=== PATIENT | female | born 1965 | race Caucasian/White ===

== ENCOUNTER → 2023-11-15 08:33 | Outpatient (REF) | payer OTHER, SELFPAY | LOC: HWWDC 08:33 | PROVIDERS: ATTENDING PHYSICIAN Obstetrics & Gynecology; FAMILY PHYSICIAN Family Medicine | DX: Z12.31 Encounter for screening mammogram for malignant neoplasm of breast (principal) | CPT/HCPCS: 77063; 77067 ==

== ENCOUNTER → 2024-02-05 09:03 | Outpatient (REF) | payer OTHER, SELFPAY | LOC: WDC 09:03 | PROVIDERS: ATTENDING PHYSICIAN Obstetrics & Gynecology | DX: R92.2 Inconclusive mammogram (principal) | CPT/HCPCS: 76641 ==

== ENCOUNTER 2024-06-18 05:23 | Day surgery (SDC) | payer BC, SELFPAY ==
[2024-06-17 23:51] VITALS: BP 195/104
[2024-06-18] VITALS (22 sets, daily range): BP systolic 102–186; BP diastolic 64–104; BMI 31.0; BMI 30.1
[2024-06-18] MEDS: ZOFRAN ODT (ORALLY DISINTEGRATING) 4 MG PO (00:14)
[2024-06-18 02:05] LABS: % Basophils 0.4 % (0-2); % Eosinophils 0.8 % (0-6); % Immature Granulocytes 0.4 % (0-0.5); % Lymphocytes 12.2 % (20.5-51.1); % Monocytes 5.4 % (1.7-9.3); % Neutrophils 80.8 % (42.2-75.2); Absolute Basophils 0.1 10^3/uL (0-0.2); Absolute Eosinophils 0.1 10^3/uL (0-0.7); Absolute Immature Granulocytes 0.1 10^3/uL (0-0.05); Absolute Lymphocytes 1.5 10^3/uL (1.2-3.4); Absolute Monocytes 0.6 10^3/uL (0.1-0.6); Absolute Neutrophils 9.6 10^3/uL (1.4-6.5); Hematocrit 46.8 % (37.0-47.0); Hemoglobin 16.4 g/dL (12.0-16.0); Mean Corpuscular Hgb 30.5 pg (27.0-31.0); Mean Corpuscular Volume 87.2 fL (81.0-99.0); Mean Platelet Volume 9.2 fL (7.4-10.4); Nucleated Red Blood Cells % 0 %; Platelet Count 237 10^3/uL (130-400); Red Blood Cell Count 5.37 10^6/uL (4.20-5.40); Red Cell Dist. Width 11.7 % (11.5-14.5); White Blood Cell Count 11.9 10^3/uL (4.8-10.8)
[2024-06-18 02:41] LABS: ALT (SGPT) 150 U/L (0-35); AST (SGOT) 194 U/L (14-36); Albumin 5.3 g/dl (3.5-5.0); Alkaline Phosphatase 72 U/L (38-126); Blood Urea Nitrogen 17 mg/dl (7-17); Calcium 10.2 mg/dl (8.4-10.2); Carbon Dioxide 23 mmol/L (22-30); Chloride 101 mmol/L (98-107); Estimated Creatinine Clearance 101 ml/min; Glucose 200 mg/dl (70-99); Lipase 397 U/L (23-300); Potassium 4.3 mmol/L (3.5-5.1); Sodium 136 mmol/L (135-145); Total Bilirubin 0.8 mg/dl (0.2-1.3); Total Protein 8.3 g/dl (6.3-8.2); eGFR > 60.00
--- NOTE | 2024-06-18 02:46 | ED.GENMED ---
History of Present Illness
General
Chief Complaint: Abdominal Symptoms
Source: patient and spouse
Exam Limitations: none
Time Seen by Provider: 06/18/24 02:26
Nursing documentation reviewed up to this point in time: agreed with
History of Present Illness
History of Present Illness:
59-year-old female presents to the emergency department complaining of abdominal pain, burning and nausea in the epigastric area. This began 5 hours ago. She has a history of similar symptoms in the past. [place] were on a [place] road trip
and did not get evaluated.
Past History
Past History
ED Past Medical History: Cancer (Breast cancer)
ED Past Surgical History: and Gynecological (Oophorectomy for ovarian torsion)
Social History
Tobacco: Non-smoker
Alcohol: None
Drug: None
Personal:
Living: with family
Review of Systems
Review of Systems
Allergies reviewed?: Yes
All Other Systems: Not applicable
Constitutional: Reports no symptoms
EENT: Reports no symptoms
Respiratory: Reports no symptoms
Cardiac: Reports no symptoms
ABD/GI: Reports abdominal pain and vomiting
: Reports no symptoms
Musculoskeletal: Reports no symptoms
Skin: Reports no symptoms
Neurological: Reports no symptoms
Endocrine: Reports no symptoms
Hematologic/Lymphatic: Reports no symptoms
Psychiatric: Reports no symptoms
Phy Exam
Physical Exam
Physical Exam:
Physical Exam
General: no apparent distress, not acutely ill
Neck: supple. no meningeal signs. normal posterior pharynx
Heart: s1/s2 regular rate and rhythm, no murmur. equal radial
pulses.
HEENT: Pupils equal round reactive to light, EOMI
Lungs: no acute respiratory distress. clear bilaterally
Abdomen: normal bowel sounds. Mild epigastric tenderness. No CVAT
Neuro: alert and oriented. no focal neurological deficits cranial nerves II through XII intact
Skin: no rash, midline blue tattoo marker for radiation on epigastric region
Psychiatric: well kept. interactive and cooperative
Extremities: no edema. no calf tenderness. negative homans. good distal pulses
Course
Orders/Labs/Results
Orders:
Orders
06/18/24 00:14
Ondansetron Orally Disint [Zofran Odt (Orally Disintegrating)] 4 mg PO NOW STA
06/18/24 01:55
Complete Blood Count/With Diff Urgent
Comprehensive Metabolic Panel Urgent
Lipase Urgent
06/18/24 02:45
CT Abd/pelvis W Iv Cont Urgent
Comment:
Reason For Exam: epigastric/right sided abdominal pain
06/18/24 03:02
Urinalysis Reflex To Culture Urgent
Date Specimen was Collected: 06/18/24
Time Specimen was Collected: 03:00
06/18/24 04:10
Piperacillin/Tazo 4.5 Gram [Zosyn] 4.5 gram in 100 ml IV NOW
06/18/24 04:32
HYDROmorphone [Dilaudid] 0.5 mg IV NOW STA
Ondansetron Injectable [Zofran] 4 mg IV NOW STA
06/18/24 05:05
Admit/Transfer Patient As Directed
Co-Sign Provider:
Level of Care: Observation services
Assign to:: Medical/Surgical
Physician / Group: Dr. Singh Surgical
Diagnosis: acute cholecystitis
Code Status As Directed
Resuscitation Status: Full Code
PRN Pain Medication Management As Directed
May give lesser potent ordered pain med per pt: Yes
preference::
Protocol:: Medication orders for pain may be administered in a
manner that supports deferring to patient preference
when the pt is:
- Requesting an ordered lesser potent pain medication.
Least to most potent pain medications are defined
as: acetaminophen < NSAID < tramadol < opioids
(morphine, oxycodone, hydromorphone).
- Requesting a lesser dose of the same medication IF
ORDERED.
- Requesting a less intrusive route of administration
if both routes are prescribed by the provider (PO <
IV).
06/18/24 Breakfast
NPO
Allow oral meds: Yes
Allow clear liquids: No
06/18/24 06:06
Acetaminophen [Tylenol] 650 mg PO Q4HPRN PRN
Bisacodyl [Dulcolax] 10 mg RECTAL [id number] PRN
Docusate W/Senna [Senokot-S] 1 tablet PO BIDPRN PRN
HYDROmorphone [Dilaudid] 0.25 mg IV Q4HPRN PRN
HYDROmorphone [Dilaudid] 0.5 mg IV Q4HPRN PRN
Lactated Ringers [Lr] 1,000 ml IV 80 mls/hr
Ondansetron Injectable [Zofran] 4 mg IV Q6HPRN PRN
Polyethylene Glycol Powder [Miralax] 17 grams PO DAILYPRN PRN
06/18/24 06:06
Comprehensive Metabolic Panel Routine
Activity As Directed
Activity Level: Out of Bed-Early Mobility
Pneumatic Compression Sleeves As Directed
Type: Knee high
Vital Signs As Directed
Frequency: Per unit guidelines
DX Deep Vein Thrombosis Video Routine
06/18/24 10:00
Piperacillin/Tazo 3.375 Gram [Zosyn] 3.375 gram in 50 ml IV Q6H
06/19/24 06:00
Lipase IN AM
Abnormal Lab Results
06/18/24 06/18/24
01:55 03:02
WBC 11.9 H 10^3/uL
(4.8-10.8)
Hgb 16.4 H g/dL
(12.0-16.0)
Abs Immat Gran (auto) 0.1 H 10^3/uL
(0-0.05)
Absolute Neuts (auto) 9.6 H 10^3/uL
(1.4-6.5)
Neutrophils % 80.8 H %
(42.2-75.2)
Lymphocytes % 12.2 L %
(20.5-51.1)
Glucose 200 H mg/dl
(70-99)
AST 194 H U/L
(14-36)
ALT 150 H U/L
(0-35)
Total Protein 8.3 H g/dl
(6.3-8.2)
Albumin 5.3 H g/dl
(3.5-5.0)
Lipase 397 H U/L
(23-300)
Urine Glucose 2+ A
(Negative)
06/18/24 01:55
06/18/24 01:55
Vital Signs
Initial and Last Documented VS:
Initial Vital Signs
Temp Pulse Resp BP Pulse Ox
98.2 F 72 18 195/104 99
06/17/24 23:51 06/17/24 23:51 06/17/24 23:51 06/17/24 23:51 06/17/24 23:51
Last Documented Vital Signs
Temp Pulse Resp BP Pulse Ox
98.2 F 71 18 186/98 97
06/17/24 23:51 06/18/24 01:57 06/18/24 01:57 06/18/24 03:00 06/18/24 03:00
MDM/Problems Addressed
Differential Diagnosis Includes:
Pancreatitis, cholecystitis
MDM/Problems Addressed:
51-year-old female with acute cholecystitis. Admit to Dr. Francisco emery, n.p.o., Zosyn given.
Chronic conditions affecting care: Cancer
*Radiology
Radiology exam reviewed: radiology read reviewed (CT abdomen pelvis shows acute cholecystitis)
*Pulse Oximetry
Patient hypoxic: no
*Critical Care Note
Total Time (30-74mins, 75-104mins- exclusive of procedures): Not Applicable
Patient Management
Social determinants of health affecting care: Living situation and Strong social support
Discussion with other providers: Cloth Layer (General surgery)
Escalation/DeEscalation of care consider admission/obs:
Admission indicated
ED Attending Note
-
Portions of this chart may have been created with voice recognition software.� Occasional wrong word or��sound alike� substitutions may have occurred due to the inherent limitations of voice recognition software.
Discharge Plan
Departure
Patient Disposition: Admit
Date of Disposition: 06/18/24
Time of Disposition: 04:11
Admit to: Med/Surg
Presentation/result/management discussed w/ accepting MD/DO: General surgery
Patient with high blood pressure during this ER visit?: Yes
Condition: Good
Discharge Problem:
Acute cholecystitis
Interventions
Interventions:
*Risk Screen - Suicide Last Done: 06/18/24 01:44
*General Assessment Last Done: 06/17/24 23:51
*Neglect/Abuse Screening Last Done: 06/17/24 23:51
ED- Fall Risk Assessment Last Done: 06/18/24 01:44
*ED COVID-19 Vaccine History Last Done: 06/17/24 23:51
*Nursing Disposition Last Done: 06/18/24 06:08
BB-Fgcyug-Dwbncgwckg Assessment Last Done: 06/18/24 01:57
Discharge Date and Time
Discharge Date/Time: 06/18/24 06:08
[2024-06-18 03:38] LABS: Urine Albumin Trace (Neg - Trace); Urine Bilirubin Negative (Negative); Urine Character Slightly Cloudy (Clear); Urine Color Yellow; Urine Glucose 2+ (Negative); Urine Ketone Negative (Negative); Urine Leukocyte Negative (Negative); Urine Nitrite Negative (Negative); Urine Occult Blood Negative (Negative); Urine Urobilinogen Negative (Neg - 1+)
[2024-06-18] MEDS: ZOFRAN 4 MG IV ×2 (04:42→16:53)
[2024-06-18] MEDS: DILAUDID 0.5 MG IV ×2 (04:42→09:21)
[2024-06-18] MEDS: ZOSYN 100 IV (04:47)
--- NOTE | 2024-06-18 05:04 | HPS.HSE ---
Addendum entered and electronically signed by Marcel Mantilla MD 06/18/24 09:11:
Patient seen and examined independently of admitting nurse practitioner. Agree with documented history and physical with additions noted here.
HPI: 59-year-old female who was in her usual baseline state of health until yesterday early evening when she developed the acute onset of epigastric and bandlike upper abdominal pain with abdominal bloating and distention. She recalls 2 similar
prior episodes over the past few months. The first was prior to and the other earlier in May. Both of these events were postprandial in nature lasting overnight with symptoms improving the following day. This episode was more
severe and acute in onset after having cheese cake yesterday. She has had some nausea and anorexia but no vomiting. No change in bowels. No additional associated symptoms.
Pain remains persistent this a.m. and is now returning.
PMH: Hypertension
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
AFVSS
NAD AAOx3; uncomfortable appearing; her is at bedside
ABD: Soft, mild distention, tenderness palpation localizing to the epigastrium and right upper quadrant with voluntary guarding on deep palpation.
WBC 11.9, mild elevation AST and ALT. Normal bilirubin and alkaline phosphatase. Lipase 397. A.m. lipase pending.
CT imaging personally reviewed demonstrates distended gallbladder with inflammatory changes and subtle appearance of stones.
Assessment/plan: 59-year-old female with probable acute calculus cholecystitis, possible mild gallstone pancreatitis -await a.m. lipase from today
Reviewed with patient and her at bedside indications for cholecystectomy secondary to persistent pain and tenderness on examination. Laparoscopic cholecystectomy with intraoperative cholangiograms reviewed in detail the patient including
the operative technique utilizing diagrams and drawings, potential operative findings and their management (if choledocholithiasis identified would need post op ERCP). We discussed potential benefits and risks of the procedure in detail including
but not limited to bleeding, infectious and wound related complications, iatrogenic injury to surrounding viscera, bile leak, bile duct injury, postcholecystectomy fatty food intolerance/bowel changes. We discussed the typical postoperative
recovery pending operative findings. Any of the patient's concerns or questions were fully addressed and written informed consent was obtained.
Patient has been added onto the OR schedule for today
N.p.o.
IV fluids
A.m. lipase pending
Zosyn for empiric coverage of cholecystitis
Original Note:
Family Physician
-
Family Physician: NOT KNOW UNKNOWN - PT DOES
Chief Complaint
-
Abdominal pain
History of Present Illness
a 59 years old female with PMH of HTN, breast cancer, present to ER with a complain of abdominal pain. Symptoms started around 9pm last night after eating dinner. Pain described as burning and stabbing to the epigastric area and B/L upper sides of
the abdomen. Rated 7/10 of pain scale associated with nausea. She had similar symptoms twice in the past. Denies vomiting, constipation, diarrhea, SOB, chest pain, fever, chills, or any other symptoms.
Medical History
Past Medical History
Past Medical History: Reports Cancer (breast cancer ) and HTN
Past Surgical History: Reports and Gynocological (oophorectomy for ovarian torsion )
Social History
Tobacco: Non-smoker
Alcohol: Other (3-4 drinks a week last drink 06/16 )
Drug: Marijuana (medical marijuana for sleeping )
Personal:
Living: With Family
Employment: Other
Family History
Family History: Not pertinent
Allergies / Home Medications
Allergies reflects when Allergies were last updated in [facility].
Home Medications with original date entered in [facility]
Allergy/Medication List:
Patient Allergies
Allergy/AdvReac Type Severity Reaction Status Date / Time
azithromycin [From Zithromax] Allergy Hives Verified 07/28/16 18:35
morphine Allergy Itching Verified 06/17/24 23:52
cats Allergy itching Uncoded 07/28/16 18:35
and asthma
pollen and mold Allergy sinus Uncoded 07/28/16 18:35
congestion
and
sneezing
Home Medications Table - record
�Medication �Instructions �Recorded �Confirmed
losartan 50 mg tablet 50 mg PO DAILY 07/28/16 06/18/24
Review of Systems
-
History Source: Patient
A 12 point ROS was completed and negative except as noted: Yes
EENT: Reports No Symptoms
Respiratory: Reports No Symptoms
Cardiac: Reports No Symptoms
Abdomen/GI: Reports Abdominal Pain (Epigastric area and B/L upper side of the abdomen) and Nausea
: Reports No Symptoms
Musculoskeletal: Reports No Symptoms
Skin: Reports No Symptoms
Neurological: Reports No Symptoms
Endocrine: Reports No Symptoms
Hematologic/Lymphatic: Reports No Symptoms
Physical Exam
Vital Signs
Vital Signs
Temp Pulse Resp BP Pulse Ox
98.2 F 71 18 186/98 97
06/17/24 23:51 06/18/24 01:57 06/18/24 01:57 06/18/24 03:00 06/18/24 03:00
Physical Exam
General: Pain
Respiratory: Clear
Cardiac: Regular Rhythm
GI: Soft and Tender (Epigastric area )
Musculoskeletal: No Edema
Skin: Warm
Neuro: Awake and AO x 3
Psych: Calm
Laboratory Results
-
06/18/24 01:55
06/18/24 01:55
Laboratory Results
Total Bilirubin 0.8 mg/dl (0.2-1.3) 06/18/24 01:55
AST 194 U/L (14-36) H 06/18/24 01:55
ALT 150 U/L (0-35) H 06/18/24 01:55
Alkaline Phosphatase 72 U/L (38-126) 06/18/24 01:55
Lipase 397 U/L (23-300) H 06/18/24 01:55
Data Reviewed
-
CT Scan: Discussed with Patient
Lab Data: Discussed with Patient
Impression/Plan
-
Abd/ PLVS CT shows gallbladder is distended and inflamed almost certainly reflecting acute cholecystitis, surgical consultation is recommend. Common bile duct likely normal for age at 7mm.
Hepatic steatosis. No pancreatitis. No obstructing renal stone. No bowel obstruction or diverticulitis.
WBC 11.9
IMPRESSION:
acute cholecystitis
PLAN:
Admit/observation/ med- surg Dr. Singh/ surgical services.
NPO
IVF
Will repeat CMP and lipase in am
Abx Zosyn
Antiemetics as needed
analgesics as needed
HTN
Currently on losartan
DVT prophylaxis SCDs
Code status Full code
[2024-06-18] MEDS: LR 1000 IV (06:21)
[2024-06-18 08:46] LABS: ALT (SGPT) 213 U/L (0-35); AST (SGOT) 277 U/L (14-36); Albumin 4.6 g/dl (3.5-5.0); Alkaline Phosphatase 59 U/L (38-126); Blood Urea Nitrogen 13 mg/dl (7-17); Calcium 9.9 mg/dl (8.4-10.2); Carbon Dioxide 25 mmol/L (22-30); Chloride 99 mmol/L (98-107); Estimated Creatinine Clearance 116 ml/min; Glucose 195 mg/dl (70-99); Potassium 4.5 mmol/L (3.5-5.1); Sodium 136 mmol/L (135-145); Total Bilirubin 0.6 mg/dl (0.2-1.3); Total Protein 7.3 g/dl (6.3-8.2); eGFR > 60.00
[2024-06-18] MEDS: ZOSYN 50 IV ×2 (09:21→21:36)
[2024-06-18 10:28] LABS: Lipase 237 U/L (23-300)
--- NOTE | 2024-06-18 14:34 | W.SUR.PREOP ---
Pre-Operative Surgical Note
-
I have examined this patient prior to the performance of the scheduled procedure.
The patient's condition is unchanged from the time of the current History and
Physical and the patient is able to undergo the scheduled procedure.
--- NOTE | 2024-06-18 16:29 | W.IMMPOSTOP ---
Addendum entered and electronically signed by Marcel Mantilla MD 06/18/24 16:42:
#[id number]
Original Note:
Surgical Immed Post Op Note
-
Primary Surgeon: Marcel Mantilla MD
Assisting Surgeon: Chaitanya Vanegas MD, PGY 1
Pre-op Diagnosis: Acute calculus cholecystitis
Post-op Diagnosis: Acute calculus cholecystitis
Procedure Performed: Lap cholecystectomy with IOC
Anesthesia Type: GETA +0.25% Marcaine
Specimen / Cultures: Gallbladder/none
Estimated Blood Loss: 8 mL
Complications: None immediate
Operative Findings: Distended gallbladder with edema but no significant wall thickening. Numerous small gallstones. Intraoperative cholangiogram confirmed biliary anatomy. No definitive evidence of choledocholithiasis. Gallbladder removed intact
and extracted at epigastric 12 mm trocar site.
Advance diet as tolerated to low-fat postoperatively
Anticipate discharge home tomorrow
Updated patient's postoperatively in the waiting area.
[2024-06-18 17:04] LABS: Glucose - Point of Care 149 mg/dl (70-99)
[2024-06-18] MEDS: TORADOL 10 MG IV (17:09)
[2024-06-18] MEDS: ZOSYN IV (17:14)
[2024-06-18] MEDS: DEMEROL 12.5 MG IV ×2 (17:17→17:29)
--- NOTE | 2024-06-18 17:31 | SUR.PHASEI ---
patient post op - when awake c/o slight nausea and pain - burning. medicated with zofran and toradol. nausea subsided and then shivers. Demerol 12.5 given IV x2 for shivers and pain, dozing now,
[2024-06-18] MEDS: COMPAZINE 5 MG IV (17:54)
--- NOTE | 2024-06-18 18:42 | PTCARENOTE ---
Received patient at 1840 from PACU. Patient drowsy but arousable to verbal stimuli. Patient has no c/o pain, abdomen with 5 lap sites CDI, ice to abdomen, 2L NC 97%. Call purdy in reach spouse at bd side.
--- NOTE | 2024-06-18 20:26 | SUR.PHASEI ---
pacu addendum -patient in pacu - received sedate and then awakened confused. vss,, reorients easily, but agitated slightly - feels Odd, slight nausea, some pain. Medicated with zofran for nausea, then toradol and demerol. at 1745 - just feels
weird all over and maybe nausea with burning - medicated with compazine and sleeps . O2 nasal cannula, with all of pain meds and antiemetics.
[2024-06-19] MEDS: LR 1000 IV (01:48)
[2024-06-19 03:43] VITALS: BP 130/71
[2024-06-19] MEDS: ZOSYN 50 IV ×2 (04:07→10:41)
[2024-06-19 08:00] VITALS: BP 120/71
--- NOTE | 2024-06-19 08:52 | W.PN.GS2 ---
Today's Communication / Plan
-
dispo planning
Assessment / Plan
-
59 yo female who presented with acute calculous cholecystitis
AFVSS
Following expected post op course
--Low fat diet as tolerated
--IS when awake, wean off O2
--Analgesics/antiemetics as needed
--OOB/ambulate
--D/C later today once off oxygen and tolerating diet
Subjective Data
-
Date of Service: June 19, 2024
Patient seen and examined at bedside with Dr. Saleh. Jose n/v. Has not yet eaten since surgery. Pain well managed and minimal.
Objective Data
-
Intake and Output
06/18/24 06/19/24 06/20/24
06:59 06:59 06:59
Intake Total 320 / 320
Balance 320 / 320
Intake:
Oral fluids 20 / 20
IV fluids (Total) 200 / 200
normosol 200 / 200
IV piggybacks 100 / 100
Other:
Number of approximated MODERATE 1
amounts of urine
Vital Signs
Temp Pulse Resp BP Pulse Ox
98.2 F 71 18 120/71 96
06/19/24 08:00 06/19/24 08:00 06/19/24 08:00 06/19/24 08:00 06/19/24 08:00
Lab Results
06/18/24 01:55
06/18/24 07:49
Calcium 9.9 mg/dl (8.4-10.2) 06/18/24 07:49
Total Bilirubin 0.6 mg/dl (0.2-1.3) 06/18/24 07:49
AST 277 U/L (14-36) H 06/18/24 07:49
ALT 213 U/L (0-35) H 06/18/24 07:49
Alkaline Phosphatase 59 U/L (38-126) 06/18/24 07:49
Total Protein 7.3 g/dl (6.3-8.2) 06/18/24 07:49
Albumin 4.6 g/dl (3.5-5.0) 06/18/24 07:49
Physical Exam
-
NAD
ABD soft, nd, mild incisional tenderness
Incisions well approximated without erythema, intact glue
--- NOTE | 2024-06-19 09:55 | W.DS.TRANS ---
DC Summary - Pharmacy Scheduler
-
Discharge Instructions:
Discharge Diagnosis/Procedures Acute calculus cholecystitis. Laparoscopic
cholecystectomy
Diet As tolerated,Low Fat
Additional Diets Smaller meals initially after surgery is
abdominal bloating and distention are common for
the first few days
Activity No strenuous activity
Additional Activity No lifting over 20 pounds for 3 to 4 weeks
postoperatively
Bathing Restrictions OK to Shower
Wound Care Glue at surgical sites typically peels off in 2
to 3 weeks
Instructions:
Stand-Alone Forms:
Changes to Home Medications: No
Discharge Medications:
DC Medications w/original date entered in [employer]
losartan 50 mg tablet 50 mg PO DAILY 07/28/16
acetaminophen 325 mg tablet 650 mg (2 x 325 mg) PO Q4HPRN PRN mild pain #1 tab 06/19/24
ibuprofen 200 mg tablet 400 - 600 mg (2 - 3 x 200 mg) PO Q6HPRN PRN moderate pain #1 tab 06/19/24
oxycodone 5 mg tablet 5 mg PO Q4HPRN PRN breakthrough/severe pain #5 tabs 06/19/24
Home Medication Changes
Pending Results: No
--- NOTE | 2024-06-19 10:20 | CM ---
CM reviewed chart, patient seen bedside, initial assessment completed. Patient resides with her in a single story home, four steps to enter. Patient is independent with ADLs/IADLS, denies VN/SNF history. Patient PCP Javy Valera, pharmacy [facility]
[place], confirms prescription coverage. Patient denies insecurities at home. OBS form reviewed verbally, provided with copy, placed in chart. Patient reports her will provide transportation home. CM will continue to follow for all
discharge planning needs.
Plan; home no needs.
[2024-06-19] MEDS: LR IV (12:33)
== END 2024-06-19 12:52 | disposition home or self-care (01) ==
LOC: SDS 05:23
PROVIDERS: Emergency Medicine; Nurse Practitioner Family; ATTENDING PHYSICIAN Surgery; EMERGENCY PHYSICIAN Emergency Medicine
DX: K80.10 Calculus of gallbladder with chronic cholecystitis without obstruction (principal); K80.62 Calculus of gallbladder and bile duct with acute cholecystitis without obstruction
CPT/HCPCS: 47563; 88304; 74177; 74300; 76000; 80053; 81003; 82962; 83690; 85025; 96365; 96375; 99284; A4300; G0378; Q9967

== ENCOUNTER → 2024-09-23 12:48 | Outpatient (REF) | payer OTHER, SELFPAY | LOC: RAD 12:48 | PROVIDERS: ATTENDING PHYSICIAN Nurse Practitioner Family; FAMILY PHYSICIAN Family Medicine | DX: M25.511 Pain in right shoulder (principal); M54.2 Cervicalgia | CPT/HCPCS: 72050; 73030 ==